=== PATIENT | female | born 1985 | race Asian ===

== ENCOUNTER → 2022-06-05 15:10 | Outpatient (CLI) | payer OTHER, SELFPAY ==
[2022-06-05 16:11] LABS: Add Manual Diff / Slide Review NO; Basophils Absolute Auto 0 /uL (0-100); Basophils Percent Auto 0.2 % (0-2); Eosinophils Absolute Auto 0 /uL (0-450); Eosinophils Percent Auto 0.4 % (2-4); Hemoglobin 13.8 g/dL (12.0-16.0); Lymphocytes Absolute Auto 1700 /uL (1100-4500); Lymphocytes Percent Auto 16.3 % (25-40); Mean Corpuscular HGB Conc 34.6 % (30-36); Mean Corpuscular Hemoglobin 30.9 PG (26-34); Mean Corpuscular Volume 89.4 fL (80-100); Monocytes Absolute Auto 500 /uL (0-900); Monocytes Percent Auto 4.8 % (3-14); Neutrophils Absolute Auto 8000 /uL (1500-7000); Neutrophils Percent Auto 78.3 % (50-75); Platelet Count 299 X10^3/uL (150-400); Red Blood Cell Count 4.47 X10^6/uL (4.0-5.2); Red Cell Distribution Width 13.2 % (11.6-14.8); White Blood Cell Count 10.2 X10^3/uL (4.5-11.0)
[2022-06-05 16:47] LABS: Appearance Urine UA CLEAR; Bilirubin Urine UA NEGATIVE (NEGATIVE); Color Urine UA YELLOW; Glucose Urine UA NEGATIVE (Negative); Ketones Urine UA TRACE (NEGATIVE); Leukocyte Esterase Urine UA 1+ (NEGATIVE); Nitrite Urine UA NEGATIVE (Negative); Occult Blood Urine UA 1+ (Negative); Protein Urine UA NEGATIVE (Negative); Specific Gravity Urine UA 1.025 (1.000-1.035); Urobilinogen Urine UA 0.2 E.U./dL (0.2)
[2022-06-05 16:59] LABS: RBC Urine 0-1/HPF (0-5/HPF); Squamous Epithelial Cell Urine 5-10 /HPF (0-5/HPF); Transitional Epi Cells Urine 5-10/HPF (0-5/HPF); WBC Urine 5-10/HPF (0-5/HPF)
[2022-06-05 17:00] LABS: Bacteria Urine Few (2-10); Calcium Oxalate Crystals Urine Moderate; Mucus Urine 1+ (Negative)
[2022-06-06 07:42] LABS: RPR Screen Non Reactive (Non Reactive); Varicella IgG Antibody 604 index (Immune >165)
[2022-06-06 16:14] LABS: Hepatitis B Surface Antigen NEGATIVE s/c (NEGATIVE); Rubella Antibody IgG 6.7 IU/mL (>15)
[2022-06-06 16:31] LABS: HIV 1 & 2 Ab/Ag 4th Gen Combo NEGATIVE (NEGATIVE); Hep C Virus Ab w/Reflex Quant NEGATIVE s/c (NEGATIVE)
== END ==
PROVIDERS: Referring Provider Family Medicine; Visit Provider Family Medicine
DX: Z86.32 Personal history of gestational diabetes (principal); Z34.81 Encounter for supervision of other normal pregnancy, first trimester; Z3A.12 12 weeks gestation of pregnancy
CPT/HCPCS: 36415; 80055; 81003; 81015; 86787; 86803; 86850; 86900; 86901; 87086; 87389

== ENCOUNTER → 2022-06-21 11:20 | Outpatient (CLI) | payer OTHER, SELFPAY ==
[2022-06-21 12:47] LABS: Hemoglobin A1C% w Est Avg Glu 5.1 % (4.0-6.0)
[2022-06-21 13:23] LABS: GTT (PREG) 1 Hour PP 50gm Dose 145 mg/dL (76-139)
== END ==
PROVIDERS: Referring Provider Family Medicine; Visit Provider Family Medicine
DX: Z86.32 Personal history of gestational diabetes (principal)
CPT/HCPCS: 36415; 82950; 83036

== ENCOUNTER → 2022-07-03 08:01 | Outpatient (CLI) | payer OTHER, SELFPAY ==
[2022-07-03 10:33] LABS: Glucose 1 Hour Gest 124 mg/dL (76-180)
[2022-07-03 10:33] LABS: Glucose Fasting Gestational 83 mg/dL (76-95)
[2022-07-03 11:03] LABS: Glucose 2 Hour Gest 141 mg/dL (76-155)
[2022-07-03 11:57] LABS: Glucose Tol Interp,Gestational INTERPRETATION
[2022-07-03 12:07] LABS: Glucose 3 Hour Gest 95 mg/dL (76-140)
== END ==
PROVIDERS: Referring Provider Family Medicine; Visit Provider Family Medicine
DX: Z34.81 Encounter for supervision of other normal pregnancy, first trimester (principal); R73.03 Prediabetes
CPT/HCPCS: 36415; 82951; 82952

== ENCOUNTER → 2022-07-09 13:59 | Outpatient (CLI) | payer OTHER, SELFPAY ==
[2022-07-09 15:41] LABS: Alanine Aminotransferase 12 IU/L (<35); Albumin 3.6 g/dL (3.5-5.0); Albumin Globulin Ratio 1.3 (1.0-2.8); Alkaline Phosphatase 35 U/L (38-126); Aspartate Aminotransferase 17 IU/L (14-36); BUN Creatinine Ratio 19.6 (6-22); Bilirubin Total 0.2 mg/dL (0.2-1.3); Blood Urea Nitrogen 9 mg/dL (7-17); Calcium 8.8 mg/dL (8.4-10.2); Carbon Dioxide 25 mmol/L (22-32); Chloride 101 mmol/L (98-107); Estimated Glomerular Filt Rate > 60 mL/min (>60); Globulin 2.7 g/dL (1.7-4.1); Glucose 80 mg/dL (70-100); HEMOLYSIS < 15 (0-50); Potassium 4.1 mmol/L (3.4-5.1); Sodium 133 mmol/L (137-145); Total Protein 6.3 g/dL (6.3-8.2)
[2022-07-09 16:09] LABS: TSH w/ Reflex to FT4 0.81 uIU/mL (0.47-4.68)
== END ==
PROVIDERS: Referring Provider Physician Assistant; Visit Provider Physician Assistant
DX: L29.9 Pruritus, unspecified (principal); R73.03 Prediabetes
CPT/HCPCS: 36415; 80053; 82239; 84443

== ENCOUNTER → 2022-07-25 10:46 | Outpatient (CLI) | payer OTHER, SELFPAY ==
--- NOTE | 2022-07-25 | DI.US.S_ITS ---
PROCEDURE: US OB >= 14 WEEKS FETUS INDICATIONS: ANATOMY SCAN OUTSIDE/PRIOR DATING DATA: Last menstrual period (LMP): 03/13/2022. LMP-based estimated date of delivery (MIGUEL): 12/18/2022. First dating scan (date and location): 07/25/2022. Estimated date of delivery (MIGUEL) from first dating scan: 12/15/2022. The calculations are made using the LMP MIGUEL of 12/18/2022. TECHNIQUE: Real-time scanning was performed of the fetus, with image documentation and biometric measurements. Endovaginal scanning: Not performed COMPARISON: None. FINDINGS: General: A single living intrauterine gestation is present. Presentation: Breech. Placenta: Placental position is anterior , without previa. Amniotic fluid index: 13.7 cm, normal range is 5-24 cm. Single deepest vertical pocket is 3.9 cm. heart rate: 158 beats per minute. Maternal cervical canal: 3.9 cm long. Normal lower limit is 2.5 cm. biometrics: Biparietal diameter: 4.6 cm, 20 weeks 0 days Head circumference: 17.2 cm, 19 weeks 5 days Abdominal circumference: 14.3 cm, 19 weeks 5 days Femur length: 2.9 cm, 18 weeks 5 days Clinically estimated gestational age: 19 weeks 1 days Composite gestational age from present scan: 19 weeks 4 days Estimated weight and percentile: 286 g, 56 percentile Anatomic survey: Neuro: Ventricles are non-dilated at less than 10 mm. Cisterna magna is normal at 3-11 mm. Cerebellum is normal in size and morphology. Nuchal skin fold: Normal at less than 6 mm between 14-21 weeks gestational age. Face: Nose and lips, facial profile are normal. Spine: No evidence for spina bifida. Heart: Four-chamber view and outflow tracts not well seen. Diaphragm: Diaphragm is intact. Stomach: Left-sided stomach is present. Kidneys: No hydronephrosis. Normal is less than 5 mm in 2nd trimester, less than 7 mm in 3rd trimester. Cord: Three-vessel cord, insertion not well seen. Bladder: Normal in size. Extremities: All 4 extremities identified. IMPRESSION: 1. Living 2nd trimester intrauterine . Current ultrasound age is 3 days greater than clinical age based on LMP. 2. Suboptimal visualization of the heart and cord insertion. Otherwise unremarkable anatomy study. Comment: Recommend return for limited evaluation of the heart and cord insertion. We strive to produce accurate, complete, and clear reports of imaging services. To assist us in improving patient care, this report was composed using standard report templates and voice recognition software. Therefore, it may contain abnormal punctuation, insertions and/or omissions. Occasional wrong-word or sound-alike substitutions may occur. Though we review the report and make efforts to correct it, we do recommend that the report be read carefully in proper context to recognize any text inaccuracies. Dictated by: Onesimo Nichols M.D. on 07/26/2022 at 12:54 Approved by: Onesimo Nichols M.D. on 07/26/2022 at 12:58
== END ==
PROVIDERS: Referring Provider Family Medicine; Visit Provider Family Medicine
DX: Z34.92 Encounter for supervision of normal pregnancy, unspecified, second trimester (principal); Z3A.14 14 weeks gestation of pregnancy
CPT/HCPCS: 76811

== ENCOUNTER → 2022-09-25 09:59 | Outpatient (CLI) | payer OTHER, SELFPAY ==
[2022-09-25 12:31] LABS: Glucose Fasting Gestational 80 mg/dL (76-95)
[2022-09-25 12:31] LABS: Glucose 1 Hour Gest 166 mg/dL (76-180)
[2022-09-25 13:24] LABS: Glucose Tol Interp,Gestational INTERPRETATION
[2022-09-25 14:37] LABS: Glucose 2 Hour Gest 103 mg/dL (76-155)
[2022-09-25 14:37] LABS: Glucose 3 Hour Gest 106 mg/dL (76-140)
== END ==
PROVIDERS: Referring Provider Family Medicine; Visit Provider Family Medicine
DX: Z34.82 Encounter for supervision of other normal pregnancy, second trimester (principal); R73.03 Prediabetes
CPT/HCPCS: 36415; 82951; 82952

== ENCOUNTER 2022-10-04 15:12 | Outpatient (CLI) | payer OTHER, SELFPAY | END 2022-10-04 16:02 | disposition home or self-care (01) | LOC: LABOR 15:22 → OB 10-07 08:01 | PROVIDERS: Referring Provider Family Medicine; Visit Provider Family Medicine | DX: O36.8130 Decreased fetal movements, third trimester, not applicable or unspecified (principal); Z3A.29 29 weeks gestation of pregnancy | CPT/HCPCS: 59025; G0378; G0379 ==

== ENCOUNTER → 2022-10-16 16:48 | Outpatient (CLI) | payer OTHER, SELFPAY ==
--- NOTE | 2022-10-16 16:49 | DI.US.S_ITS ---
PROCEDURE: US OB FOLLOW UP INDICATIONS: FOLLOW UP HEART AND CORD INSERT OUTSIDE/PRIOR DATING DATA: Last menstrual period (LMP): March 13, 2022. LMP-based estimated date of delivery (MIGUEL): December 18, 2022. First dating scan (date and location): July 25, 2022, [facility]. Estimated date of delivery (MIGUEL) from first dating scan: December 15, 2022. TECHNIQUE: Real-time scanning was performed of the fetus, with image documentation. COMPARISON: None. FINDINGS: A single living intrauterine gestation is present. Presentation: Vertex, spine up. Placenta: Placental position is anterior, without previa. Amniotic fluid index: 14.4 cm, normal range is 5-24 cm. Single deepest vertical pocket is 5.4 cm. heart rate: 128 beats per minute. Maternal cervical canal: 4.4 cm long. Normal lower limit is 2.5 cm. Estimated gestational age from initial scan: 31 weeks, 0 days. ANATOMY: The LVOT, four-chamber heart, and RVOT are not well visualized due to late gestational age and lie. The cord insertion is not well visualized due to lie. IMPRESSION: 1. Poor characterization of the four-chamber heart, outflow tracts and cord insertion due to lie and late gestational age. Dictated by: Brittney Salazar M.D. on 10/17/2022 at 12:27 Approved by: Brittney Salazar M.D. on 10/17/2022 at 12:30
== END ==
PROVIDERS: Referring Provider Family Medicine; Visit Provider Family Medicine
DX: Z36.2 Encounter for other antenatal screening follow-up (principal); Z3A.31 31 weeks gestation of pregnancy
CPT/HCPCS: 76816

== ENCOUNTER → 2022-11-29 11:32 | Outpatient (CLI) | payer OTHER, SELFPAY ==
[2022-11-30 10:10] LABS: Strep Grp B PCR POS for Grp B Strep
== END ==
PROVIDERS: Visit Provider Family Medicine
DX: Z36.85 Encounter for antenatal screening for Streptococcus B (principal)
CPT/HCPCS: 87653

== ENCOUNTER 2022-12-13 07:07 | Inpatient (IN) | payer OTHER, SELFPAY ==
--- NOTE | 2022-12-13 07:12 | PM.OBHP.1 ---
OB HPI Date/Time Date of admission: 12/13/22 Date Patient Seen: 12/13/22 Time Patient Seen: 07:12 History of Present Condition Chief complaint: IUP, 39+2 wks EGA, AMA, prediabetes : 3 Para: 2 Estimated Date of Delivery: 12/18/22 Estimated Gestational Age (weeks): 39+2 Narrative: Bisi Currie is a [address] Cboy Jackosn at 39+ 2 weeks gestational age admitted for induction due to advanced maternal age and history of prediabetes. course has been largely uneventful with firm dating and appropriate milestones. Patient does have possible marginal cord insertion which could not be confirmed on re-scan and incomplete anatomic survey due to position and EGA. Her most recent Ferrari score 1 week ago was 7-8 and the plan is to initiate Pitocin for labor induction. GBS is positive. Indications Indication for induction OB: other (Advanced maternal age, pre diabetes) History of Present care: good care Dating criteria: LMP confirmed by 1st trimester US Ultrasounds: normal 1st trimester US and normal mid trimester US Obstetrical complications: other (Advanced maternal age, prediabetes) Preadmission Labs Blood type: A (+) positive -: Antibody screen: negative, GBS status: positive, HBsAG: negative and RPR/VDLR: negative -: Chlamydia screen: not detected and Gonorrhea screen: not detected -: Rubella: not immune and Varicella: immune HCT: 40.0 HCAB: negative PAP: Normal Quad screen: Normal Cell-free DNA: Low risk, male 1 hr GTT: 145 3 hr GTT: 1 hr (166), 2 hr (103) and 3 hr (106) Fasting blood glucose: 80 Prior (ies) History: x 2 PFSH Medical History Abnormal Pap smear of cervix Acne (~1999) Anxiety and depression (~2012) Astigmatism Chicken pox (~1989) Gestational diabetes depression Pre-diabetes Restless leg syndrome (~2005) Surgical History Anesthesia Grace teeth extracted Family History Sister Gestational diabetes Father Hypertension Hyperlipidemia Grandmother Hypertension Hyperlipidemia Grandfather Hypertension Hyperlipidemia Social History marital status: number of children: 2 household members: spouse and children lives independently: Yes housing: condominium ([facility]) pets and animals: No education level: college (vicki's degree) occupational status: unemployed current occupational exposures/hazards: No special domingo needs: No seatbelt use: always helmet use: Yes water heater temp set < 120 deg: Yes working smoke detector in home: Yes fire extinguisher in home: Yes carbon monox detector in home: Yes firearms in home: No do you feel safe at home: Yes Smoking Status: Never smoker second hand exposure: No alcohol intake: former substance use type: does not use during the past year weight has: decreased > 10 lbs (intentional) well-balanced diet: daily or most days daily servings fruits/ve-4 caffeine: Yes Type(s) of exercise: walking frequency: 3-4 times per week Meds Home Medications and Allergies Home Medications Medication Instructions Recorded Confirmed Type melatonin 3 mg tablet 3 mg PO BEDTIME PRN Sleep 04/29/22 12/13/22 History omega 3 350 mg-dha 235 mg-epa 90 cap PO 04/29/22 12/12/22 History mg-fish oil 597 mg capsule,delay rel prenat.vits,slava,vwg-afba-rzysj 1 tab PO DAILY 04/29/22 12/13/22 History Allergies Allergy/AdvReac Type Severity Reaction Status Date / Time Tetracyclines Allergy Severe Difficulty Verified 12/12/22 10:26 Breathing pineapple Allergy Mild ITCHING Verified 12/12/22 10:26 OB Exam Vital signs Blood Pressure: 114/71 Pulse Rate: 82 Temperature: 97.0 F HENMT Head: normal to inspection, normocephalic and atraumatic Eyes General: appearance normal, both eyes and all related structures Resp Effort & Inspection: normal respiratory effort and able to speak in complete sentences Auscultation: clear to auscultation bilaterally Cardio Rate: regular rate Rhythm: regular rhythm Heart Sounds: S1 normal, S2 normal and no murmurs Extremities Lower extremity: Yes normal to inspection GI Inspection: normal to inspection Palpation: Yes soft and Yes no hepatosplenomegaly Uterus Location (Fundal Height): 38 Presentation: vertex Estimated Weight (lbs): 8 Objective Labs 12/13/22 07:30 Assessment and Plan Assessment and Plan Assessment and Plan narrative: ASSESSMENT 1. Intrauterine , 39+ 2 weeks gestational age 2. Advanced maternal age 3. History of prediabetes 4. GBS positive status PLAN 1. Admit for induction 2. See admission orders Time Spent with Patient Total time spent with greater than 50% in coordination of care (as documented) at patient's floor/unit and/or counseling patient:: 15-24 minutes
[2022-12-13] MEDS: LACTATED RINGERS 1,000 ML 100 ML IV ×2 (08:00→12:17)
[2022-12-13] MEDS: OXYTOCIN PREMIX 30 UNIT/500 ML PLAST..BAG IV (08:00)
[2022-12-13] MEDS: PENICILLIN G POTASSIUM 5,000,000 UNIT in DEXTROSE 5% IN WATER 250 ML 250 UNIT IV (08:07)
[2022-12-13 08:11] LABS: Add Manual Diff / Slide Review NO; Basophils Absolute Auto 0 /uL (0-100); Basophils Percent Auto 0.1 % (0-2); Eosinophils Absolute Auto 200 /uL (0-450); Eosinophils Percent Auto 2.6 % (2-4); Hematocrit 32.4 % (36-46); Hemoglobin 10.6 g/dL (12.0-16.0); Lymphocytes Absolute Auto 1500 /uL (1100-4500); Lymphocytes Percent Auto 17.9 % (25-40); Mean Corpuscular HGB Conc 32.8 % (30-36); Mean Corpuscular Volume 88.5 fL (80-100); Monocytes Absolute Auto 700 /uL (0-900); Monocytes Percent Auto 7.7 % (3-14); Neutrophils Absolute Auto 6100 /uL (1500-7000); Neutrophils Percent Auto 71.7 % (50-75); Platelet Count 204 X10^3/uL (150-400); Red Blood Cell Count 3.66 X10^6/uL (4.0-5.2); Red Cell Distribution Width 15.9 % (11.6-14.8); White Blood Cell Count 8.5 X10^3/uL (4.5-11.0)
[2022-12-13 08:51] VITALS: BP 110/67
[2022-12-13 09:37] LABS: COVID19 -Nasal RAPID Negative (Negative)
[2022-12-13] MEDS: FENT 2MCG/ML BUPIV 0.125% EPI 200 MCG/100 ML PLAST..BAG 6 MCG EPIDURAL (12:16)
[2022-12-13] MEDS: PENICILLIN G POTASSIUM 3,000,000 UNIT/50 ML FROZ.PIGGY 100 UNIT IV ×2 (12:16→16:35)
[2022-12-13] MEDS: FLUoxetine 20 MG CAPSULE 40 MG PO (12:54)
[2022-12-13 13:17] VITALS: BP 114/71; PULSE 82; TEMP 36.1
--- NOTE | 2022-12-13 13:18 | PM.OBPNLAB ---
Date/Time Date Patient Seen: 12/13/22 Time Patient Seen: 13:00 Pain Control Pain control: tolerating well and epidural Comments: Patient block is high. Now in sitting position, fluid bolus. Anesthesia aware. Pelvic Exam Dilation (cm): 3 Effacement (%): 60 station: -1 Comments: Awaiting completion of 2nd PCN dose; delayed due to HALI issues. Will recheck cervix and AROM when feasible.
--- NOTE | 2022-12-13 15:00 | PM.OBPNLAB ---
Date/Time Date Patient Seen: 12/13/22 Time Patient Seen: 15:00 Pain Control Pain control: tolerating well and epidural Comments: HALI issues addressed by anesthesia; patient feels much better. Pelvic Exam Dilation (cm): 5 Effacement (%): 75 station: -1 Amniotic membrane status: Ruptured Comments: AROM clear fluid 1455 Contractions Monitor mode: External Pitocin rate (mU/min): 12 Contraction frequency (min): 4 Contraction duration (min): 1 Contraction pattern: Regular Contraction phase: Resting Contraction intensity: Moderate Status status: Category l Heart Rate Baseline: 125 Monitor Accelerations: Present Monitor Decelerations: Absent Monitor Variability: Moderate Assessment and Plan Assessment: active labor and induction ongoing Plan: continuous present management Comments: Anticipate
[2022-12-13] MEDS: ONDANSETRON 4 MG/2 ML INJ IV (17:32)
--- NOTE | 2022-12-13 20:31 | P.PCNOB_ITS ---
Events: Labor Induction Labor & Delivery Delivery date: 12/13/22 Intrapartal Events: None Cervical ripening method: none Induction method: per pitocin protocol Delivery augmentation: rupture of membranes Delivery monitor: external FHT and external uterine Route of delivery: Episiotomy description: None L&D Laceration Description: None Quantitative Blood Loss: 200 Anesthesia Type: Epidural Narrative: CNM assumed care of patient at 1730 with report from . Patient progressed rapidly form 7cm to C/C/+1. Pitocin was decreased to 2mu/min prior to pushing(max dose during induction was 14mu/min). Adequate treatment x 3 total doses of pencillin. Category II FHR tracing for minimal variability and rare variables prior to second stage improved to moderate variability during second stage. Strong maternal efforts and coaching during pushing led to NSVB of a vigorous baby boy in KEMAL position over an intact perineum. There was no nuchal cord. A 1 minute 20 second shoulder systocia was resolved with McRobert's maneuver and reduction of the posterior arm. was lifted to maternal abdomen by FOB for drying and skin to skin. Scant terminal meconium was noted. Remaining 30 units of pitocin in 500mL LR was increased to 250mL/hr for active management of the third stage of labor. After cessation of pulsation, the cord was double clamped by CNM and cut by FOB. Gentle cord tract ion and a single maternal push led to spontaneous, Schultze delivery of an apparently intact placenta, membranes and 3VC. Fundus immediately firm and bleeding minimal. Vagina and perineum inspected and intact with minimal edema. Straight catheterization for 150mL urine output. QBL 200mL. Both mother and baby stable and skin to skin as I left the room. [place] Baby 1: Infant gender: Male Presentation: vertex Position: Left Occiput Anterior Placenta delivery description: Spontaneous Cord Vessel Description: 3 Vessels score (1 min): 9 score (5 min): 9 weight: 4.435 kg Plan for aftercare: Routine care
[2022-12-14] MEDS: KETOROLAC 30 MG/ML VIAL IV (05:16)
--- NOTE | 2022-12-14 07:55 | P.DS_ITS ---
Discharge Providers Provider Date of admission: 12/13/22 07:07 Discharge Date: 12/14/22 Primary care physician: Jessica HILL Provider Consults: 12/14/22 20:29 Consult to Psychosocial Rehabilitation Counselor Routine Comment: Discharge provider: Christiane Cortes CNM Summary Hospital Course Date Patient Seen: 12/14/22 Time Patient Seen: 07:55 Diagnoses: O80 Hospital Course: PPD1: Stable s/p NSVB with an 80 second shoulder dystocia. Voiding ambulating and showering independently. Tolerating a general diet. Minimal cramping pain is well controlled with PO medication. Vaginal bleedingis light, without clots. Eager for discharge to be with her baby who was transferred to [facility] last night. is present and supportive. Peripartum Data Delivery Method: Natural Vaginal Laceration Description: None Episiotomy description: None Procedures: O80 complications: none [place] 1: Gender: Male Disposition of : NICU Discharge Diagnosis (1) Encounter for full-term uncomplicated delivery: Status: Acute (2) Shoulder dystocia during labor and delivery: Status: Acute Status at Discharge Cognitive/behavioral status at discharge: oriented and calm Functional status at discharge: independent ambulation Overall status at discharge: patient is progressing back to baseline Time Spent with Patient Time attestation: Total time spent providing and/or coordinating discharge services: Time spent: Less than 30 minutes Specific discharge activities: teaching Objective Labs 12/13/22 07:30 Labs: Laboratory Results - last 24 hr 12/13/22 12/13/22 12/13/22 07:30 07:30 07:30 WBC 8.5 RBC 3.66 L Hgb 10.6 L Hct 32.4 L MCV 88.5 MCH 29.0 MCHC 32.8 RDW 15.9 H Plt Count 204 Neut % (Auto) 71.7 Lymph % (Auto) 17.9 L Henry % (Auto) 7.7 Eos % (Auto) 2.6 Baso % (Auto) 0.1 Neut # (Auto) 6100 Lymph # (Auto) 1500 Henry # (Auto) 700 Eos # (Auto) 200 Baso # (Auto) 0 SARS-CoV-2 (PCR) Negative Blood Type A Positive Antibody Screen Negative Exam Vital Signs (past 8 hours): BP 105/68mmHg, HR 75bpm, RR 18/min, T 98.2F Temporal, SpO2 100% on RA Other: Fundus firm @u. Lochia scant, no clots. Perineum intact. Discharge Plan Discharge Plan Patient Disposition: Home Discharge orders & Medications Prescriptions: New fluoxetine 20 mg Capsule 40 mg PO DAILY 90 Days Qty: 90 4RF ibuprofen 600 mg Tablet 600 mg PO Q6HR PRN (Reason: Pain, Mild (1-3)) 14 Days Qty: 60 0RF Continued prenat.vits,slava,jbx-dyoq-mrtlk Tablet 1 tab PO DAILY omega 1-rvy-kox-fish oil 350 mg-235 mg- 90 mg-597 mg capsule,delayed release(DR/EC) PO Rx Instructions: See admin instructions melatonin 3 mg tablet 3 mg PO BEDTIME PRN (Reason: Sleep) Follow up/Referrals: ProviderJessica [Primary Care Provider] - Coby Jackson MD [Physician] - (Call to schedule your 6 week follow-up appointment) Diet/Activity/Treatments Activity: Pelvic rest x 6 weeks Skin/Wound/Dressing Care Report to your healthcare provider any signs of infection, such as:: chills, fever, increased pain, unusual drainage and unusual redness Visit Report/Discharge Packet Instructions: DI for Depression Stand Alone Forms: Patient Portal/API, Stroke Signs & Symptoms Discharge Data Primary Care Provider: Jessica Lee
[2022-12-14 08:40] VITALS: BP 110/72; PULSE 85; RESP 16; TEMP 36.4
[2022-12-14] MEDS: MEASLES,MUMPS,RUBELLA VACC/PF 0.5 ML VIAL SUBCUT (09:17)
== END 2022-12-14 09:40 | disposition home or self-care (01) | DRG 807 ==
PROVIDERS: Family Medicine; Admitting Provider Obstetrics & Gynecology; Referring Provider Obstetrics & Gynecology; Visit Provider Obstetrics & Gynecology
DX: O99.892 Other specified diseases and conditions complicating childbirth (principal); Z37.0 Single live birth; R73.03 Prediabetes; Z3A.39 39 weeks gestation of pregnancy; O99.824 Streptococcus B carrier state complicating childbirth; O76 Abnormality in fetal heart rate and rhythm complicating labor and delivery; Z20.822 Contact with and (suspected) exposure to COVID-19
CPT/HCPCS: 36415; 59050; 85025; 86850; 86900; 86901; 87635; C9803; G0379; J1885; J2405; J2540; J2590